=== PATIENT | male | born 1960 | race Caucasian/White ===

== ENCOUNTER 2023-05-15 06:15 | Emergency (ER) | payer MEDICAID ==
[~2023-05-15] VITALS: Ht 162.6 cm; Wt 67.0 kg
[2023-05-15 06:19] VITALS: O2SAT 99
[2023-05-15] MEDS ORDERED: ACETAMINOPHEN 325MG TABLET PO ONE (07:00)
[2023-05-15] MEDS ORDERED: KETOROLAC 60MG/2ML VIAL IM ONE (07:15)
[2023-05-15 08:17] VITALS: BP_DIAS 70
[2023-05-15] MEDS ORDERED: TOPUD MT (09:56)
[2023-05-15] MEDS ORDERED: IBUP-1523 MT (09:56)
[2023-05-15 10:25] VITALS: BP_SYST 139; PULSE 84; RESP 18; TEMP 98.4
== END 2023-05-15 10:28 | disposition home or self-care (01) ==
LOC: ER 06:15
DX: S16.1XXA Strain of muscle, fascia and tendon at neck level, initial encounter (principal); E11.9 Type 2 diabetes mellitus without complications; I25.2 Old myocardial infarction; Z98.890 Other specified postprocedural states; V89.2XXA Person injured in unspecified motor-vehicle accident, traffic, initial encounter; Y93.89 Activity, other specified; Y92.89 Other specified places as the place of occurrence of the external cause; Y99.8 Other external cause status
CPT/HCPCS: 72040; 96372; 99283; J1885; Z7610 ×2

== ENCOUNTER 2023-11-18 14:06 | Emergency (ER) | payer MEDICAID ==
[~2023-11-18] VITALS: Ht 175.3 cm; Wt 81.0 kg
[~2023-11-18 14:06] MED LIST: IBUP-1523 MT; TOPUD MT
[2023-11-18 14:28] VITALS: BP 130/82; PULSE 79; TEMP 98.2; O2SAT 99
[2023-11-18] MEDS ORDERED: NAPR-681 MT (16:42)
[2023-11-18 16:50] VITALS: RESP 16
[2023-11-18] MEDS: ACETAMINOPHEN 500MG TABLET PO ONE (16:50)
[2023-11-18] MEDS: KETOROLAC 60MG/2ML VIAL IM ONE (16:50)
== END 2023-11-18 16:50 | disposition home or self-care (01) ==
LOC: ER 14:06
DX: M79.10 Myalgia, unspecified site (principal); E11.9 Type 2 diabetes mellitus without complications; I25.2 Old myocardial infarction; V49.49XA Driver injured in collision with other motor vehicles in traffic accident, initial encounter; Y93.89 Activity, other specified; Y92.89 Other specified places as the place of occurrence of the external cause; Y99.8 Other external cause status
CPT/HCPCS: 96372; 99283; J1885; Z7610